=== PATIENT | female | born 1945 | race Caucasian/White ===

== ENCOUNTER 2016-12-18 17:09 | Emergency (ER) | payer MEDICARE ==
[2016-12-18 17:16] VITALS: BP 157/74
[2016-12-18 20:17] LABS: Hematocrit 38 % (35-47); Hemoglobin 12.8 g/dl (12.0-16.0); Mean Corpuscular HGB Conc 34 g/dl (31-36); Mean Corpuscular Hemoglobin 33 pg (27-31); Mean Corpuscular Volume 99 fL (80-97); Mean Platelet Volume 9 um3 (7.4-10.4); Red Blood Count 3.89 10^6/ul (4.0-5.4); Red Cell Distribution Width 14 % (10.5-15); White Blood Count 7.5 10^3/ul (3.5-10.8)
[2016-12-18 20:32] LABS: ALT 13 U/L (7-52); Albumin 3.3 g/dL (3.2-5.2); Alkaline Phosphatase 66 U/L (34-104); BUN/Creatinine Ratio 17.4 (8-20); Blood Urea Nitrogen 16 mg/dL (6-24); CO2 Carbon Dioxide 26 mmol/L (22-32); Calcium 8.9 mg/dL (8.6-10.3); Chloride 106 mmol/L (101-111); EGFR African American 77.6 (>60); EGFR Non-African American 60.3 (>60); Globulin 3.2 g/dL (2-4); Glucose 76 mg/dL (70-100); Sodium 137 mmol/L (133-145); Total Protein 6.5 g/dL (6.4-8.9)
[2016-12-18 20:35] LABS: Anion Gap 5 mmol/L (2-11)
--- NOTE | 2016-12-18 21:00 | RAD ---
Indication: Left leg edema. Duplex Doppler sonography of the deep venous system of the left lower extremity deep venous system was performed. Bilaterally the common femoral veins appear patent and compressible. Left proximal greater saphenous vein, proximal deep femoral vein, femoral vein, posterior tibial veins and peroneal veins appear patent and compressible. There is however no echogenic material in the central portion of the left popliteal vein. This is only partially compressible. In addition mild wall thickening of the left common femoral vein, proximal femoral vein is also noted. This may be sequela of prior thrombus. IMPRESSION: PALPABLE WALL THICKENING OF THE LEFT COMMON FEMORAL VEIN AND PROXIMAL FEMORAL VEIN LIKELY SEQUELA FROM PRIOR THROMBUS. THERE IS ECHOGENIC MATERIAL IN THE POPLITEAL VEIN LIKELY REPRESENTING SUBACUTE THROMBUS.
[2016-12-18] MEDS ORDERED: Rivaroxaban TAB(*) 15 MG PO ONE (23:19)
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
== END 2016-12-19 00:03 | disposition home or self-care (01) ==
LOC: ED 17:09
DX: I82.4Y2 Acute embolism and thrombosis of unspecified deep veins of left proximal lower extremity (principal); M79.1 Myalgia; Z86.718 Personal history of other venous thrombosis and embolism; Z85.3 Personal history of malignant neoplasm of breast; Z90.11 Acquired absence of right breast and nipple; Z89.201 Acquired absence of right upper limb, unspecified level; Z89.022 Acquired absence of left finger(s); Z88.1 Allergy status to other antibiotic agents; Z88.5 Allergy status to narcotic agent; Z88.0 Allergy status to penicillin
CPT/HCPCS: 36415; 80053; 85025; 85379; 85610; 99282

== ENCOUNTER 2019-07-20 08:57 | Emergency (ER) | payer MEDICARE ==
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
[2019-07-20 12:26] VITALS: BP 135/51
== END 2019-07-20 12:50 | disposition home health service (06) ==
LOC: UCEAST 08:57
DX: I82.401 Acute embolism and thrombosis of unspecified deep veins of right lower extremity (principal); Z91.09 Other allergy status, other than to drugs and biological substances; Z88.1 Allergy status to other antibiotic agents; Z88.5 Allergy status to narcotic agent; Z88.0 Allergy status to penicillin; Z91.013 Allergy to seafood; Z91.012 Allergy to eggs; Z91.018 Allergy to other foods
CPT/HCPCS: 99212; G0463

== ENCOUNTER 2019-07-20 14:06 | Observation (INO) | payer MEDICARE ==
[2019-07-20 16:48] LABS: ABS Eosinophils 0.2 10^3/ul (0-0.6); ABS Monocytes 1.1 10^3/ul (0-0.8); ABS Neutrophils 5.3 10^3/ul (1.5-7.7); Eosinophil % 2.4 %; Hematocrit 40 % (35-47); Hemoglobin 13.9 g/dL (12.0-16.0); Lymphocyte % 22.9 %; Mean Corpuscular HGB Conc 35 g/dL (31-36); Mean Corpuscular Hemoglobin 34 pg (27-31); Mean Corpuscular Volume 98 fL (80-97); Mean Platelet Volume 8.4 fL (7.4-10.4); Platelet Count 164 10^3/uL (150-450); Red Blood Count 4.06 10^6 /uL (3.70-4.87); Red Cell Distribution Width 13 % (10-15); White Blood Count 8.6 10^3/uL (3.5-10.8)
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
[2019-07-20 17:05] LABS: BUN/Creatinine Ratio 19.2 (8-20); Calcium 9.4 mg/dL (8.6-10.3); EGFR African American 66.5 (>60); Potassium 4.1 mmol/L (3.5-5.0)
[2019-07-20 17:08] LABS: INR 1.03 (0.82-1.09)
[2019-07-20] MEDS ORDERED: Iodixanol* (CONTRAST) 320 MG/ML 100 ML SDV IV ONE (17:11)
[2019-07-20] MEDS ORDERED: Mupirocin 2% OINT* TUBE TOPICAL PRN (18:48)
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
[2019-07-20] MEDS ORDERED: Enoxaparin(*) 150 MG/ML 1 ML SYRINGE SUBCUT ONE (19:30)
[2019-07-20] MEDS: Divalproex ER TAB(*) 500 MG PO SCH (21:58)
[2019-07-21] MEDS ORDERED: traMADol TAB* 50 MG PO PRN (01:52)
[2019-07-21] MEDS ORDERED: Ondansetron INJ* 2 MG/ML VIAL IV PRN (01:53)
[2019-07-21] MEDS: Acetaminophen TAB* 325 MG PO PRN (03:18)
[2019-07-21] MEDS ORDERED: Perflutren Lipid Microsphere* 3 ML VIAL ONE (08:19)
[2019-07-21] MEDS: Cholecalciferol TAB* 1000 UNITS PO SCH (10:17)
[2019-07-21] MEDS: Pantoprazole TAB * 40 MG TAB PO SCH (10:17)
[2019-07-21] MEDS: Divalproex ER TAB(*) 500 MG PO SCH ×2 (10:18→20:08)
[2019-07-21] MEDS: CMCS: Solifenacin(NF) 5 MG TAB PO SCH (10:18)
[2019-07-21] MEDS: Enoxaparin(*) 150 MG/ML 1 ML SYRINGE SUBCUT SCH ×2 (10:20→20:09)
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
--- NOTE | 2019-07-21 16:05 | ECHO ---
*[facility]* [place] [address] Fax #: [phone] Transthoracic Echocardiogram Patient: Radha Oliveira : 1945 Study Date: 07/21/2019 Age: 74 Gender: F HR: 91 bpm Height: 67 in /170.2 cm BSA: 2.22 m^2 Weight: 249.5 lb /113.4 kg BMI: 39.2 kg/m^2 *Health Social Work Professor: * Katy Walker [facility] *Referring Physician: * Myron Rowe *Reading Physician: * Rafi Newell MD Indications: PE. History: Deep vein thrombosis. Conclusions Summary: - Left ventricle: The cavity size is mildly reduced. Wall thickness is mildly increased. Systolic function is normal. The estimated ejection fraction is 60-65%. Doppler parameters are consistent with abnormal left ventricular relaxation (grade 1 diastolic dysfunction). - Right ventricle: Systolic function is mildly reduced. Study data: Transthoracic echocardiogram. Procedure: Transthoracic echocardiography was performed. Image quality was suboptimal. Intravenous Definity , 2 mlswas administered. Complete 2D, spectral Doppler, and color flow Doppler. Location: Bedside. Patient status: Inpatient. Patient room number: 443 02. No prior study is available for comparison. Rhythm: Normal sinus rhythm. Findings Left ventricle: The cavity size is mildly reduced. Wall thickness is mildly increased. Systolic function is normal. The estimated ejection fraction is 60-65%. Wall motion is normal; there are no regional wall motion abnormalities. Doppler parameters are consistent with abnormal left ventricular relaxation (grade 1 diastolic dysfunction). Right ventricle: The cavity size is normal. Systolic function is mildly reduced. Ventricular septum: The outflow septum has a sigmoid appearance. Left atrium: The atrium is normal in size. Right atrium: Not well visualized. Mitral valve: The leaflets are normal thickness. There is no evidence of stenosis. There is no significant regurgitation. Aortic valve: The annulus is mildly calcified. The valve is trileaflet. The leaflets are normal thickness. There is no evidence of stenosis. There is trace regurgitation. Tricuspid valve: The leaflets are normal thickness. There is no evidence of stenosis. There is trace regurgitation. Pulmonic valve: Not well visualized. There is no significant regurgitation. Aorta: The aortic root appears normal. The aortic arch appears normal. Pericardium: There is no significant pericardial effusion. Pulmonary arteries: Systolic pressure is within the normal range. Systemic veins: Inferior vena cava: The vessel is normal in size. There is (>= 50%) respiratory change in the IVC dimension. Measurements Left ventricle Value Ref Aortic valve continued Value Ref SHERRY, LAX (L) 3.0 cm 3.8 - 5.2 Mean grad, S 4.0 mm Hg ----- ESD, LAX (L) 1.7 cm 2.2 - 3.5 Peak grad, S 7.0 mm Hg ----- FS, LAX 45 % 27 - 45 PW, ED, LAX (H) 1.1 cm 0.6 - 0.9 Mitral valve Value Ref E', lat rolly, TDI (L) 6.2 cm/sec >=10.0 Peak E 0.6 m/sec ----- E/e', lat rolly, 10 Peak A 0.77 m/sec --- -- TDI Decel time 135 ms ----- E', med rloly, TDI (L) 6.3 cm/sec >=7.0 Peak E/A ratio 0.8 ----- E/e', med rolly, 10 TDI Pulmonic valve Value Ref E', avg, TDI 6.3 cm/sec Peak v, S 0.57 m/sec --- -- E/e', avg, TDI 10 <=14 Peak grad, S 1.0 mm Hg ----- LVOT Value Ref Tricuspid valve Value Ref Peak maxx, S 0.98 m/sec TR peak v 2.2 m/sec <=2.8 Mean grad, S 2 mm Hg Peak RV-RA grad, S 19 mm Hg ----- Ventricular septum Value Ref Aortic root Value Ref IVS, ED (H) 1.3 cm 0.6 - 0.9 Root diam 2.9 cm <4.3 Root max diam, ED 2.9 cm <4.3 Right ventricle Value Ref AW thickness, ED 0.5 cm 0.1 - 0.5 Ascending aorta Value Ref SHERRY, LAX 2.4 cm AAo AP diam, S 3.0 cm ----- Pressure, S 27 mm Hg AAo AP diam/bsa, S 1.4 cm/m^2 ----- Left atrium Value Ref Aortic arch Value Ref AP dim, ES 3.30 cm 2.70 - Arch diam 2.4 cm ----- 3.80 ML dim, A4C 3.5 cm Decending aorta Value Ref SI dim, A4C 4.9 cm Ruddy peak maxx 0.75 m/sec ----- Vol/bsa, ES, A/L 18 ml/m^2 16 - 34 Pulmonary artery Value Ref Right atrium Value Ref Pressure, S 26.0 mm Hg ----- Estimated RAP 8 mm Hg Inferior vena cava Value Ref Aortic valve Value Ref Diam 0.8 cm ----- Rolly diam, ED 2.0 cm Rolly diam/bsa, ED 0.9 cm/m^2 Peak v, S 1.3 m/sec VTI, S 24.8 cm Legend: (L) and (H) eben values outside specified reference range. Prepared and electronically signed by Rafi Newell MD 07/21/2019 16:04
[2019-07-22] MEDS: Acetaminophen TAB* 325 MG PO PRN (04:39)
[2019-07-22] MEDS: Divalproex ER TAB(*) 500 MG PO SCH (07:57)
[2019-07-22] MEDS: Cholecalciferol TAB* 1000 UNITS PO SCH (07:57)
[2019-07-22] MEDS: CMCS: Solifenacin(NF) 5 MG TAB PO SCH (07:57)
[2019-07-22] MEDS: Pantoprazole TAB * 40 MG TAB PO SCH (07:57)
[2019-07-22 08:30] VITALS: BP 136/74
[2019-07-22] MEDS ORDERED: Rivaroxaban TAB(*) 15 MG PO SCH (09:00)
== END 2019-07-22 10:35 | disposition home or self-care (01) ==
LOC: ED 14:06 → MEDTELE 18:45
PROVIDERS: ADMIT Internal Medicine; ATTEND Internal Medicine
DX: I82.401 Acute embolism and thrombosis of unspecified deep veins of right lower extremity (principal); I26.99 Other pulmonary embolism without acute cor pulmonale; F31.9 Bipolar disorder, unspecified; G47.33 Obstructive sleep apnea (adult) (pediatric); M79.604 Pain in right leg; R94.31 Abnormal electrocardiogram [ECG] [EKG]; Z85.3 Personal history of malignant neoplasm of breast; Z94.5 Skin transplant status; Z79.899 Other long term (current) drug therapy; Z88.0 Allergy status to penicillin; Z88.1 Allergy status to other antibiotic agents; Z88.6 Allergy status to analgesic agent; Z86.718 Personal history of other venous thrombosis and embolism; Z89.201 Acquired absence of right upper limb, unspecified level
CPT/HCPCS: 36415; 71275; 80048; 84484; 85025; 85610; 85730; 93005; 93306; 96372; 99284; A9270-GY; C8929; G0378; J1650; Q9967

== ENCOUNTER 2021-02-27 11:20 | Observation (INO) ==
[2021-02-27] MEDS ORDERED: NS 0.9% 1000 ml BAG 1,000 ML IV ONE (11:40)
[2021-02-27 12:21] LABS: ABS Basophils 0.1 10^3/ul (0-0.2); ABS Eosinophils 0.1 10^3/ul (0-0.6); ABS Lymphocytes 2.8 10^3/ul (1.0-4.8); ABS Monocytes 0.9 10^3/ul (0-0.8); ABS Neutrophils 3.8 10^3/ul (1.5-7.7); Eosinophil % 1.5 %; Hematocrit 40 % (35-47); Hemoglobin 13.7 g/dL (12.0-16.0); Lymphocyte % 36.7 %; Mean Corpuscular HGB Conc 34 g/dL (31-36); Mean Corpuscular Hemoglobin 34 pg (27-31); Mean Corpuscular Volume 99 fL (80-97); Mean Platelet Volume 8.5 fL (7.4-10.4); Nucleated Red Blood Cells % 0.1; Platelet Count 167 10^3/uL (150-450); Red Blood Count 4.06 10^6 /uL (3.70-4.87); Red Cell Distribution Width 14 % (10-15); White Blood Count 7.7 10^3/uL (3.5-10.8)
[2021-02-27 12:32] LABS: INR 1.7 (0.86-1.15)
[2021-02-27 12:33] LABS: Activated Partial Thrombo Time 37.2 seconds (26.0-38.0)
[2021-02-27 12:47] LABS: Albumin 3.5 g/dL (3.2-5.2); Albumin/Globulin Ratio 1.1 (1-3); Calcium 9.4 mg/dL (8.6-10.3); EGFR African American 54.7 (>60); EGFR Non-African American 45.2 (>60); Globulin 3.1 g/dL (2-4); Total Bilirubin 0.4 mg/dL (0.2-1.0); Total Protein 6.6 g/dL (6.4-8.9)
[2021-02-27 12:48] LABS: HDL Cholesterol 40.8 mg/dL
[2021-02-27] MEDS ORDERED: Iodixanol (CONTRAST) 320 MG/ML 100 ML SDV IV ONE (13:02)
[2021-02-27 13:13] LABS: Potassium 3.5 mmol/L (3.5-5.0)
[2021-02-27 16:28] LABS: TSH Ultra Thyroid Stim Horm 3.54 mcIU/mL (0.34-5.60)
[2021-02-27 17:10] LABS: Rapid COVID-19 Molecular Undetected (Undetected)
[2021-02-27] MEDS ORDERED: Lactated Ringers 1000 ml BAG 1,000 ML IV SCH (18:00)
[2021-02-27] MEDS ORDERED: Solifenacin 10 mg TAB (NF) PO SCH ×2 (18:00→21:00)
[2021-02-28] MEDS ORDERED: Cholecalciferol (VIT D3) 1,000 unit TAB PO SCH ×2 (09:00)
[2021-02-28 09:43] LABS: CO2 Carbon Dioxide 30 mmol/L (22-32); Calcium 9.1 mg/dL (8.6-10.3); Chloride 104 mmol/L (101-111); Sodium 141 mmol/L (135-145)
[2021-02-28 09:49] LABS: Blood Urea Nitrogen 16 mg/dL (6-24); EGFR African American 61.3 (>60); EGFR Non-African American 50.7 (>60); Glucose 81 mg/dL (70-100)
[2021-02-28 09:54] LABS: Anion Gap 7 mmol/L (2-11)
[2021-02-28 11:31] VITALS: BP 121/55
[2021-03-02 16:07] LABS: IgG Immunoblot Negative (Negative); IgM Immunoblot Negative (Negative)
== END 2021-02-28 13:35 | disposition home or self-care (01) ==
LOC: MEDTELE 11:20 → ED 11:20
PROVIDERS: ADMIT Internal Medicine; ATTEND Internal Medicine

== ENCOUNTER 2022-10-28 16:10 | Observation (INO) ==
[2022-10-28 17:33] LABS: ABS Basophils 0.1 10^3/uL (0.0-0.1); ABS Eosinophils 0.1 10^3/uL (0.0-0.5); ABS Lymphocytes 2.7 10^3/uL (1.0-4.8); ABS Monocytes 1.1 10^3/uL (0.0-0.9); ABS Neutrophils 3.8 10^3/uL (1.5-7.6); ABS Nucleated RBC 0.01 10^3/ul; Eosinophil % 1.5 %; Hematocrit 41.4 % (35-45); Hemoglobin 14.1 g/dL (11.5-14.3); Lymphocyte % 34.8 %; Mean Corpuscular Hemoglobin 32.8 pg (27-33); Mean Corpuscular Volume 96.5 fL (80-97); Mean Platelet Volume 8.5 fL (7.5-11.2); Nucleated Red Blood Cells % 0.1 /100 WBC (0.0-0.4); Platelet Count 172 10^3/uL (150-450); Red Blood Count 4.29 10^6/uL (3.63-4.92); Red Cell Distribution Width 14.3 % (12-17); White Blood Count 7.7 10^3/uL (3.8-11.8)
[2022-10-28 17:38] LABS: INR 1.42 (0.88-1.18)
[2022-10-28 17:46] LABS: Urine Appearance Cloudy; Urine Bilirubin Negative (Negative); Urine Blood Negative (Negative); Urine Color Straw; Urine Glucose Negative (Negative); Urine Ketones Negative (Negative); Urine Nitrite Negative (Negative); Urine Protein Negative (Negative); Urine Specific Gravity 1.003 (1.002-1.030); Urine Urobilinogen Negative (Negative)
[2022-10-28 17:54] LABS: Urine Bacteria 1+ (Absent); Urine Red Blood Cell 1+(3-5/hpf) (Absent); Urine Squamous Epithelial Cell Present (Absent); Urine White Blood Cell 3+(>20/hpf) (Absent)
[2022-10-28 18:14] LABS: Creatinine, Serum 1.13 mg/dL (0.51-0.95); eGFR CKD-EPI 50.4 (>60)
[2022-10-28 18:15] LABS: Albumin 3.5 g/dL (3.2-5.2); Albumin/Globulin Ratio 1.1 (1-3); Calcium 9.4 mg/dL (8.6-10.3); Globulin 3.1 g/dL (2-4); Total Bilirubin 0.4 mg/dL (0.2-1.0); Total Protein 6.6 g/dL (6.4-8.9)
[2022-10-28 18:18] LABS: Potassium 4.6 mmol/L (3.5-5.0)
[2022-10-28 19:01] LABS: High Sensitivity Troponin 1 Hr 3 pg/mL (<15)
[2022-10-28] MEDS ORDERED: SOLIFENACIN 10 MG PO SCH (21:00)
[2022-10-28] MEDS ORDERED: CMCS: Solifenacin 5 mg TAB (NF) PO SCH (23:00)
[2022-10-29 06:27] LABS: ABS Nucleated RBC 0.04 10^3/ul; Hemoglobin 13.5 g/dL (11.5-14.3); Mean Corpuscular Hemoglobin 33.5 pg (27-33); Mean Corpuscular Hgb Conc 33.7 g/dL (31-36); Mean Corpuscular Volume 99.4 fL (80-97); Mean Platelet Volume 9.4 fL (7.5-11.2); Nucleated Red Blood Cells % 0.6 /100 WBC (0.0-0.4); Platelet Count 152 10^3/uL (150-450); Red Blood Count 4.02 10^6/uL (3.63-4.92); Red Cell Distribution Width 14.4 % (12-17); White Blood Count 6.4 10^3/uL (3.8-11.8)
[2022-10-29 06:35] LABS: CO2 Carbon Dioxide 20 mmol/L (22-32); Chloride 109 mmol/L (101-111); Magnesium 1.9 mg/dL (1.9-2.7); Sodium 141 mmol/L (135-145)
[2022-10-29 06:41] LABS: Blood Urea Nitrogen 20 mg/dL (6-24); Creatinine, Serum 1.18 mg/dL (0.51-0.95); Glucose 89 mg/dL (70-100); eGFR CKD-EPI 47.9 (>60)
[2022-10-29 06:44] LABS: Anion Gap 12 mmol/L (2-16)
[2022-10-29 07:50] LABS: RBC Morphology Normal (Normal)
[2022-10-29 07:51] LABS: ABS Eosinophils 0.1 10^3/uL (0.0-0.5); ABS Lymphocytes 2.9 10^3/uL (1.0-4.8); ABS Monocytes 0.9 10^3/uL (0.0-0.9); ABS Neutrophils 2.5 10^3/uL (1.5-7.6); Eosinophil % 2.1 %; Lymphocyte % 45.7 %
[2022-10-29] MEDS ORDERED: Regadenoson 0.4 MG/5 ML SYRINGE ONE (13:37)
[2022-10-29] MEDS ORDERED: Aminophylline 25 MG/ML VIAL ONE (13:37)
[2022-10-29] MEDS ORDERED: Sulfur Hexaflouride MICROSPHR 25 MG VIAL ONE (14:23)
[2022-10-29 16:09] VITALS: BP 143/68
[2022-10-29] MEDS ORDERED: Nitrofurantoin (monohydrate/macrocrystals) 100 mg CAP PO ONE (16:30)
== END 2022-10-29 17:30 ==
LOC: EDHOLD 16:10 → ED 16:10 → SUATTDRO 18:49 → EDHOLD 21:24 → MEDTELE 21:47
PROVIDERS: ADMIT Hospitalist; ATTEND Internal Medicine